=== PATIENT | female | born 1980 | race African-American/Black ===

== ENCOUNTER 2017-11-13 09:10 | Outpatient (CLI) | payer OTHER ==
[2017-11-13] MEDS ORDERED: IOTHALAMATE MEGLUMINE 50 ML VIAL ONE (09:37)
[2017-11-13] MEDS ORDERED: GADOPENTETATE DIMEGLUMINE 5 ML VIAL IVP ONE ×2 (09:38→10:16)
[2017-11-13] MEDS ORDERED: IOTHALAMATE MEGLUMINE 50 ML VIAL IVP ONE (10:16)
[2017-11-13] MEDS ORDERED: BUFFERED LIDOCAINE 10 ML SYRINGE IU ONE (10:16)
--- NOTE | 2017-11-13 13:13 | XRAY Report ---
Procedure Date: 11/13/2017 Accession Number: [id number] / [id number] Procedure: FL - Arthrogram Needle Placement CPT Code: FULL RESULT: EXAM: Arthrogram Needle Placement DATE: 11/13/2017 10:13 AM CLINICAL HISTORY: PAIN IN UNSPECIFIED HIP Following obtaining informed consent, the patient's right hip was prepped and draped in the usual sterile fashion. The skin and soft tissues were anesthetized with lidocaine. A spinal needle was directed into the right hip joint, and following confirmation of needle positioning, a combination of iodinated contrast, dilute gadolinium, and lidocaine were injected intra-articularly. The patient tolerated the procedure well. No immediate complications. Spot image reveals no evidence of contrast extravasation. IMPRESSION: Successful right hip injection for MRI arthrogram. Fluoroscopy time: 40 seconds; one spot image obtained.
--- NOTE | 2017-11-13 17:10 | MRI Report ---
Procedure Date: 11/13/2017 Accession Number: [id number] / [id number] Procedure: MRI - Arthrogram Hip RT CPT Code: FULL RESULT: EXAM: RIGHT HIP MRI ARTHROGRAM WITH CONTRAST EXAM DATE: 11/13/2017 10:42 AM. CLINICAL HISTORY: Hip pain, hip dysplasia. COMPARISON: None. TECHNIQUE: Multiplanar, multisequence T1-weighted and fluid-sensitive, small vhgin-ah-ebhb sequences of the hip and large dyfgt-fe-evxb sequences of the pelvis after an arthrographic injection of dilute gadolinium, dictated under a separate exam. Other: None. FINDINGS: Bones and articular surfaces: There is adequate contrast material within the right hip joint. No definite contrast filling labral tear identified. No paralabral cyst formation. No significant hip articular cartilage defects. Lumbosacral transitional segment with pseudoarthrosis on the right. Sacroiliac joints otherwise appear within normal limits. Pubic symphysis appears normal. No evidence of acute fracture or stress reaction. No evidence of femoral head AVN. Musculotendinous structures: The ischiofemoral space measures approximately 11 mm on the right and 9 mm on the left. There is a small amount of edema in the left quadratus femoris muscle. Trace edema at the right quadratus femoris. No significant muscle atrophy or fatty replacement. Miscellaneous: No significant pelvic free fluid. IMPRESSION: 1. Unremarkable appearance of the right hip. No definite labral tear or significant arthritic change. 2. Narrowing of the left greater than right quadratus femoris space with some edema in the left quadratus femoris muscle. This raises the possibility of ischiofemoral impingement. Correlate clinically. [facility] MUSCULOSKELETAL RADIOLOGY SECTION
== END 2017-11-13 09:11 | disposition home or self-care (01) ==
LOC: DI 09:10
PROVIDERS: ATTEND Family Medicine
DX: M25.551 Pain in right hip (principal)
CPT/HCPCS: 27093; 73722; 77002; Q9961